=== PATIENT | female | born 1965 | race Caucasian/White ===

== ENCOUNTER 2021-04-13 20:27 | Emergency (ER) | payer BC, OTHER ==
[~2021-04-13 20:27] MED LIST: CYCLOBENZAPRINE10 MG PO; FLOVENT 220.1 GM/INH INH; IBUPROFEN800 MG PO; NASONEX17 GM; OMNICEF 300 MG300 MG PO; PROAIR DIGIHAL90 MCG INH; TESSALON PERLE100 MG PO; TORADOL 10 MG T10 MG PO; ZITHROMAX250 MG PO
== END 2021-04-13 20:59 | disposition left against medical advice (07) ==
LOC: ER1 20:27
DX: Z53.21 Procedure and treatment not carried out due to patient leaving prior to being seen by health care provider (principal)